=== PATIENT | male | born 1965 | race Caucasian/White ===

== ENCOUNTER 2016-12-24 22:24 | Inpatient (IN) | payer OTHER ==
[~2016-12-24] VITALS: Ht 167.6 cm; Wt 76.7 kg
[~2016-12-24 22:24] MED LIST: AMI200 PO; ASPI81TA2 PO; CARV3.1246 PO; CLOP75TA2 PO; GABA-529 PO; METF1000 PO; RAMI10CA42 PO; WARF2TAB2 PO; WARF5TAB2 PO
--- NOTE | 2016-12-24 22:24 | NUR ---
Patient to ER bed 2 to gown for evaluation. Side rails up. Report given to MARELY Borjas.
[2016-12-24 22:43] VITALS: BP 157/105; PULSE 88; RESP 14; TEMP 97.9; O2SAT 100
--- NOTE | 2016-12-24 22:45 | NUR ---
Pt brought to the ER by in stable condition. Pt c/o right knee pain 8/10 s/p fall 2 wks ago. Pt stated that he was getting out a [place] 2 [place] while traveling. Pt present w/ swelling and tightness to knee and calf. Posterior right knee is tender to touch. -sob -chest pain. No acute distress noted at this time, will continue to monitor
--- NOTE | 2016-12-24 22:52 | NUR ---
ER at bedside examining patient.
[2016-12-24] MEDS ORDERED: HYDROcodone/ACETAMIN 5-325 MG TAB (NORCO/ VICODIN) PO ONE (23:00)
[2016-12-24] MEDS ORDERED: KETOROLAC TROMETHAMINE 30 MG VIAL IVP ONE (23:00)
[2016-12-24 23:19] LABS: BASOPHILS # (AUTO) 0.1 K/uL (0.0-0.2); BASOPHILS % (AUTO) 0.5 % (0.0-2.0); EOSINOPHILS # (AUTO) 0.3 K/uL (0.0-0.4); EOSINOPHILS % (AUTO) 2.2 % (0.0-4.0); HEMATOCRIT 41.6 % (36-54); HEMOGLOBIN 13.7 g/dL (14.0-18.0); LYMPHOCYTES # (AUTO) 1.9 K/uL (1.0-5.5); LYMPHOCYTES % (AUTO) 12.3 % (20.5-51.5); MEAN CORPUSCULAR HEMOGLOBIN 28 pg (27-31); MEAN CORPUSCULAR HGB CONC 33 % (32-36); MEAN CORPUSCULAR VOLUME 86 fL (79.0-98.0); MONOCYTES # (AUTO) 1.2 K/uL (0.0-1.0); MONOCYTES % (AUTO) 7.5 % (1.7-9.3); NEUTROPHILS # (AUTO) 11.9 K/uL (1.8-7.7); NEUTROPHILS % (AUTO) 77.5 % (40.0-70.0); PLATELET COUNT (AUTO) 149 K/uL (130-430); RED BLOOD CELL COUNT(AUTO) 4.84 MIL/uL (4.2-6.2); RED CELL DISTRIBUTION WIDTH 14.3 % (9.0-15.0); WHITE BLOOD COUNT (AUTO) 15.4 K/uL (4.8-10.8)
[2016-12-24 23:23] LABS: CREATININE 1.73 mg/dL (0.55-1.30); POTASSIUM 4.8 mmol/L (3.5-5.1)
[2016-12-24 23:24] LABS: INR 1.2 (0.80-1.20); PROTHROMBIN TIME 12.7 SECS (9.5-12.5)
[2016-12-24 23:29] LABS: ALBUMIN 3.3 g/dL (3.4-4.8); TOTAL BILIRUBIN 0.3 mg/dL (0.0-1.0); TOTAL PROTEIN, SERUM 8.2 g/dL (6.4-8.3)
[2016-12-25] VITALS (7 sets, daily range): BP systolic 122–159; BP diastolic 69–103; PULSE 64–85; RESP 16–20; TEMP 96.7–98; O2SAT 96–99
[2016-12-25] MEDS ORDERED: ENOXAPARIN SODIUM 80 MG/0.8 ML SYRINGE ONE (00:29)
[2016-12-25] MEDS ORDERED: ENOXAPARIN SODIUM 80 MG/0.8 ML SYRINGE SUBCUT ONE (00:30)
[2016-12-25] MEDS ORDERED: INSULIN REGULAR, HUMAN 100 UNITS/ML, 10 ML VIAL (novoLIN R) SUBCUT PRN (00:30)
[2016-12-25] MEDS ORDERED: CHOL2000 PO (00:31)
[2016-12-25] MEDS ORDERED: PRO40 PO (00:31)
[2016-12-25] MEDS ORDERED: ATOR80TA63 PO (00:31)
[2016-12-25] MEDS ORDERED: CYAN50008 PO (00:31)
[2016-12-25] MEDS ORDERED: LEVO100T PO (00:31)
--- NOTE | 2016-12-25 00:35 | NUR ---
Medication reconciliation completed with information provided by . Any prior medication reconciliation on file was reviewed and corrected.
--- NOTE | 2016-12-25 00:44 | NUR ---
Admission Note Received patient from ER with diagnosis of DVT. Initial Plan of Care discussed-patient verbalized understanding. Family at bedside. Oriented to room, call light, pain management and safety.
--- NOTE | 2016-12-25 00:51 | NUR ---
Patient will be admitted to care of Dr. Vang. Admitted to tele unit. Will go to room 127-a. Belongings list completed. Summary report printed. Report given to MARELY Cooper and MARELY Colmenares.
--- NOTE | 2016-12-25 01:00 | NUR ---
Admission Assessment Received patient from ED, AAO x4, no acute distress noted. Assessment complete, vital signs stable, patient states pain is tolerable at this time. is at the bedside. IV noted to right AC, saline locked at this time, flushes well, no redness or swelling noted to IV site. Plan of care discussed with patient and at the bedside, they verbalized understanding. Patient is verbally able to make needs known and encouraged to do so. Call light is within reach, all fall and safety precautions in place, will continue to monitor for change in patient status.
[2016-12-25] MEDS ORDERED: FLU VACC QS 2016-17(36MOS+)/PF 0.5 ML/SYR SYRINGE I.M. PRN (01:15)
--- NOTE | 2016-12-25 03:32 | NUR ---
RN Rounds Patient is sleeping, respirations are even and unlabored, no acute distress noted, is at the bedside. Call light is within reach, all fall and safety precautions in place, will continue to monitor.
--- NOTE | 2016-12-25 05:29 | NUR ---
RN Rounds Patient is resting quietly in bed, no acute distress noted, is at the beside. Call light is within reach, all fall and safety precautions in place, will continue to monitor.
--- NOTE | 2016-12-25 06:51 | NUR ---
Closing Notes Patient is resting quietly in bed, no acute distress noted or complain of pain at this time. Patient is stable, all needs met throughout shift. Will continue to monitor until endorsed to AM nurse at bedside.
[2016-12-25 08:33] LABS: BASOPHILS # (AUTO) 0.1 K/uL (0.0-0.2); BASOPHILS % (AUTO) 0.6 % (0.0-2.0); EOSINOPHILS # (AUTO) 0.4 K/uL (0.0-0.4); EOSINOPHILS % (AUTO) 2.9 % (0.0-4.0); HEMATOCRIT 36.9 % (36-54); HEMOGLOBIN 12.5 g/dL (14.0-18.0); LYMPHOCYTES # (AUTO) 3.6 K/uL (1.0-5.5); LYMPHOCYTES % (AUTO) 29.2 % (20.5-51.5); MEAN CORPUSCULAR HEMOGLOBIN 29 pg (27-31); MEAN CORPUSCULAR HGB CONC 34 % (32-36); MEAN CORPUSCULAR VOLUME 86 fL (79.0-98.0); MONOCYTES # (AUTO) 1.3 K/uL (0.0-1.0); MONOCYTES % (AUTO) 10.2 % (1.7-9.3); NEUTROPHILS # (AUTO) 6.9 K/uL (1.8-7.7); NEUTROPHILS % (AUTO) 57.1 % (40.0-70.0); PLATELET COUNT (AUTO) 152 K/uL (130-430); RED BLOOD CELL COUNT(AUTO) 4.31 MIL/uL (4.2-6.2); RED CELL DISTRIBUTION WIDTH 13.9 % (9.0-15.0); WHITE BLOOD COUNT (AUTO) 12.3 K/uL (4.8-10.8)
[2016-12-25 08:40] LABS: CALCIUM 8.5 mg/dL (8.4-11.0); CREATININE 1.87 mg/dL (0.55-1.30); POTASSIUM 4.1 mmol/L (3.5-5.1)
--- NOTE | 2016-12-25 09:45 | NUR ---
RN ROUNDS Patient is currently resting in bed; patient states he has a little discomfort in leg but no pain at the current time. No signs of discomfort. Patient instructed to use call pink for assistance. Bed in lowest position, side rails are up, fall precautions in place.
[2016-12-25 10:15] LABS: ALBUMIN 2.9 g/dL (3.4-4.8); TOTAL BILIRUBIN 0.2 mg/dL (0.0-1.0); TOTAL PROTEIN, SERUM 6.6 g/dL (6.4-8.3)
[2016-12-25 10:23] LABS: THYROID STIMULATING HORMONE 53.39 uIu/mL (0.34-4.82)
--- NOTE | 2016-12-25 10:30 | NUR ---
AM ROUNDS Patient is awake and alert and oriented x 4. Patient denies pain at this time, no signs of distress. Educated patient deckhand sponge boat pink system, patient verbalized understanding. Addendum: 12/25/16 at 1033 by Hali Verduzco RN Incorrect time; 0730. Educated patient on fall precaution
--- NOTE | 2016-12-25 10:34 | NUR ---
Dr. MCKENZIE Here to see patient; discussed plan of care; patient to be discharged after dinner today. Will follow up
[2016-12-25] MEDS ORDERED: CYANOCOBALAMIN 5000 MCG PO SCH (11:00)
[2016-12-25] MEDS ORDERED: RAMIPRIL 5 MG CAPSULE PO SCH (11:00)
[2016-12-25] MEDS ORDERED: ACETAMINOPHEN 325 MG TABLET PO PRN (11:00)
[2016-12-25] MEDS ORDERED: CARVEDILOL 3.125 MG TABLET (COREG) PO SCH (11:00)
[2016-12-25] MEDS ORDERED: HYDROcodone/ACETAMIN 5-325 MG TAB (NORCO/ VICODIN) PO PRN (11:15)
[2016-12-25] MEDS ORDERED: ONDANSETRON HCL 4 MG/2 ML VIAL IVP PRN (11:15)
[2016-12-25] MEDS ORDERED: AMIODARONE HCL 200 MG TABLET PO ONE (11:45)
[2016-12-25] MEDS ORDERED: PANTOPRAZOLE SODIUM 40 MG TAB PO ONE (11:45)
--- NOTE | 2016-12-25 12:00 | NUR ---
Medication Medication given to patient; educated patient on potential side effects; verbalized understanding of medication. Patient is in lowest position, side rails up, fall precautions in place. Instructed patient to use call pink if assistance is needed.
[2016-12-25] MEDS ORDERED: BENAZEPRIL HCL 20 MG TABLET (LOTENSIN) PO ONE (12:15)
[2016-12-25] MEDS ORDERED: CARVEDILOL 25 MG TABLET (COREG) PO ONE (12:15)
[2016-12-25] MEDS ORDERED: APIXABAN 2.5 MG TABLET PO ONE (12:30)
--- NOTE | 2016-12-25 13:20 | NUR ---
RN ROUNDS PATIENT RESTING IN BED, EYES CLOSED, BREATHING IS EVEN AND UNLABORED, NO SIGNS OF DISTRESS, AT THE BEDSIDE AT THIS TIME, INFORMED THAT DISCHARGE WILL BE ABOUT 1600 TODAY, VERBALIZED UNDERSTANDING AT THIS TIME, BED IN LOWEST POSITION, TWO SIDE RAILS UP, FALL PRECAUTIONS IN PLACE, CALL LIGHT WITHIN REACH.
--- NOTE | 2016-12-25 15:30 | NUR ---
RN ROUNDS Patient resting in bed; family members at bedside. Patient states he is not in any pain. Bed in lowest position, two side rails up, fall precautions initiated. Will continue to monitor patient.
--- NOTE | 2016-12-25 16:20 | NUR ---
D/C Patient Patient given medication reconciliation form and D/C instructions. Exit Care provided. Patient verbalized understanding. MD discussed with patient the results and treatment provided. Ambulatory with steady gait for discharge to home. Patient in stable condition, ID band removed. IV catheter removed, intact and dressing applied, no active bleeding. Rx of ELIQUIS given. Patient educated on pain management. All belongings sent with patient.
[2016-12-25] MEDS ORDERED: metFORMIN HCL 500 MG TABLET PO SCH (21:00)
[2016-12-25] MEDS ORDERED: APIXABAN 2.5 MG TABLET PO SCH ×2 (21:00)
[2016-12-25] MEDS ORDERED: CHOLECALCIFEROL (VITAMIN D3) 2,000 UNIT TABLET PO SCH (21:00)
[2016-12-25] MEDS ORDERED: CARVEDILOL 25 MG TABLET (COREG) PO SCH (21:00)
[2016-12-25] MEDS ORDERED: ATORVASTATIN 20 MG TABLET PO SCH (21:00)
[2016-12-26] MEDS ORDERED: LEVOTHYROXINE SODIUM 0.1 MG TABLET PO SCH (07:00)
[2016-12-26] MEDS ORDERED: PANTOPRAZOLE SODIUM 40 MG TAB PO SCH (09:00)
[2016-12-26] MEDS ORDERED: GABAPENTIN 100 MG CAPSULE PO SCH (09:00)
[2016-12-26] MEDS ORDERED: BENAZEPRIL HCL 20 MG TABLET (LOTENSIN) PO SCH (09:00)
[2016-12-26] MEDS ORDERED: AMIODARONE HCL 200 MG TABLET PO SCH (09:00)
== END 2016-12-25 16:20 | disposition home or self-care (01) | DRG 300 ==
LOC: SED 22:24 → STU 12-25 00:22
PROVIDERS: ADMIT Internal Medicine; ATTEND Internal Medicine
DX: I82.401 Acute embolism and thrombosis of unspecified deep veins of right lower extremity (principal); D68.62 Lupus anticoagulant syndrome; B96.81 Helicobacter pylori [H. pylori] as the cause of diseases classified elsewhere; E03.9 Hypothyroidism, unspecified; E11.21 Type 2 diabetes mellitus with diabetic nephropathy; E11.22 Type 2 diabetes mellitus with diabetic chronic kidney disease; E78.5 Hyperlipidemia, unspecified; F17.200 Nicotine dependence, unspecified, uncomplicated; K29.70 Gastritis, unspecified, without bleeding; N18.9 Chronic kidney disease, unspecified; I25.10 Atherosclerotic heart disease of native coronary artery without angina pectoris; I12.9 Hypertensive chronic kidney disease with stage 1 through stage 4 chronic kidney disease, or unspecified chronic kidney disease; I25.5 Ischemic cardiomyopathy; K57.90 Diverticulosis of intestine, part unspecified, without perforation or abscess without bleeding; I48.91 Unspecified atrial fibrillation; Z79.01 Long term (current) use of anticoagulants; Z88.0 Allergy status to penicillin; Z95.0 Presence of cardiac pacemaker; E05.90 Thyrotoxicosis, unspecified without thyrotoxic crisis or storm
CPT/HCPCS: 36415; 73564; 80053; 80061; 82962; 83036; 84443-TC; 85025; 85610-TC; 93005; 93971; 96374; 99285; J1650; J1815; J1885

== ENCOUNTER 2017-01-13 17:24 | Outpatient (CLI) | payer OTHER ==
[~2017-01-13 17:24] MED LIST changes: +ATOR80TA63 PO; +CHOL2000 PO; +CYAN50008 PO; +LEVO100T PO; +PRO40 PO
[2017-01-13 17:47] LABS: BASOPHILS # (AUTO) 0.1 K/uL (0.0-0.2); BASOPHILS % (AUTO) 0.4 % (0.0-2.0); EOSINOPHILS # (AUTO) 0.3 K/uL (0.0-0.4); EOSINOPHILS % (AUTO) 2.7 % (0.0-4.0); HEMATOCRIT 36.5 % (36-54); HEMOGLOBIN 12.4 g/dL (14.0-18.0); LYMPHOCYTES # (AUTO) 2.9 K/uL (1.0-5.5); LYMPHOCYTES % (AUTO) 22.6 % (20.5-51.5); MEAN CORPUSCULAR HEMOGLOBIN 30 pg (27-31); MEAN CORPUSCULAR HGB CONC 34 % (32-36); MEAN CORPUSCULAR VOLUME 87 fL (79.0-98.0); MONOCYTES # (AUTO) 1.6 K/uL (0.0-1.0); MONOCYTES % (AUTO) 12.1 % (1.7-9.3); NEUTROPHILS # (AUTO) 8.1 K/uL (1.8-7.7); NEUTROPHILS % (AUTO) 62.2 % (40.0-70.0); PLATELET COUNT (AUTO) 106 K/uL (130-430); RED BLOOD CELL COUNT(AUTO) 4.21 MIL/uL (4.2-6.2); RED CELL DISTRIBUTION WIDTH 15.1 % (9.0-15.0)
[2017-01-13 18:11] LABS: ALBUMIN 3.5 g/dL (3.4-4.8); CALCIUM 8.6 mg/dL (8.4-11.0); CREATININE 1.92 mg/dL (0.55-1.30); FREE T4 (FREE THYROXINE) 0.8 ng/dL (0.6-1.6); POTASSIUM 4.1 mmol/L (3.5-5.1); THYROID STIMULATING HORMONE 20.02 uIu/mL (0.34-4.82); TOTAL BILIRUBIN 0.4 mg/dL (0.0-1.0); TOTAL PROTEIN, SERUM 8.2 g/dL (6.4-8.3)
[2017-01-15 11:39] LABS: HEMOGLOBIN A1C 9.6 % (4.8-5.6)
== END 2017-01-13 21:09 | disposition home or self-care (01) ==
LOC: SUS 17:24
PROVIDERS: ATTEND Internal Medicine
DX: I80.299 Phlebitis and thrombophlebitis of other deep vessels of unspecified lower extremity (principal)
CPT/HCPCS: 36415; 80053; 82306; 82607; 83036; 84439; 84443-TC; 85025; 93971

== ENCOUNTER 2017-01-21 11:21 | Inpatient (IN) | payer OTHER ==
[~2017-01-21] VITALS: Ht 167.6 cm; Wt 84.8 kg
[~2017-01-21 11:21] MED LIST changes: -ASPI81TA2 PO; -CLOP75TA2 PO; -METF1000 PO; -WARF2TAB2 PO; -WARF5TAB2 PO
--- NOTE | 2017-01-21 14:15 | NUR ---
ADMIT NOTE Received pt from admitting to the floor with a diagnosis of intracardiac thrombus. Admission process initiated. Patient oriented to pain management, safety and call light-teach back done.
[2017-01-21] MEDS ORDERED: APIX5TAB PO (14:28)
[2017-01-21] MEDS ORDERED: ASA81 PO (14:30)
[2017-01-21 14:53] VITALS: BP_SYST 160
--- NOTE | 2017-01-21 15:04 | NUR ---
CONSULT CARDIO IC THROMBUS DR NEGRETE [phone] DR BANSAL RENTAL CAR FERRY DRIVER S/W DARRYL OFFICE @ [phone]
[2017-01-21 15:11] LABS: BASOPHILS # (AUTO) 0.1 K/uL (0.0-0.2); BASOPHILS % (AUTO) 0.6 % (0.0-2.0); EOSINOPHILS # (AUTO) 0.4 K/uL (0.0-0.4); EOSINOPHILS % (AUTO) 2.9 % (0.0-4.0); HEMATOCRIT 34.8 % (36-54); HEMOGLOBIN 11.9 g/dL (14.0-18.0); LYMPHOCYTES # (AUTO) 2.3 K/uL (1.0-5.5); LYMPHOCYTES % (AUTO) 16.5 % (20.5-51.5); MEAN CORPUSCULAR HEMOGLOBIN 30 pg (27-31); MEAN CORPUSCULAR HGB CONC 34 % (32-36); MEAN CORPUSCULAR VOLUME 87 fL (79.0-98.0); MONOCYTES # (AUTO) 0.9 K/uL (0.0-1.0); MONOCYTES % (AUTO) 6.2 % (1.7-9.3); NEUTROPHILS % (AUTO) 73.8 % (40.0-70.0); PLATELET COUNT (AUTO) 239 K/uL (130-430); RED BLOOD CELL COUNT(AUTO) 3.99 MIL/uL (4.2-6.2); RED CELL DISTRIBUTION WIDTH 14.6 % (9.0-15.0); WHITE BLOOD COUNT (AUTO) 13.7 K/uL (4.8-10.8)
[2017-01-21] MEDS ORDERED: FLU VACC QS 2016-17(36MOS+)/PF 0.5 ML/SYR SYRINGE I.M. PRN (15:15)
[2017-01-21 15:18] LABS: CALCIUM 8.4 mg/dL (8.4-11.0); CREATININE 1.85 mg/dL (0.55-1.30); POTASSIUM 4.5 mmol/L (3.5-5.1)
[2017-01-21 15:21] LABS: INR 1.4 (0.80-1.20); PROTHROMBIN TIME 15.5 SECS (9.5-12.5)
[2017-01-21 15:23] LABS: ALBUMIN 3.4 g/dL (3.4-4.8); PHOSPHORUS 2.9 mg/dL (2.7-4.5); TOTAL BILIRUBIN 0.4 mg/dL (0.0-1.0); TOTAL PROTEIN, SERUM 7.9 g/dL (6.4-8.3)
--- NOTE | 2017-01-21 15:45 | NUR ---
CONSULT HEMATOLOGY IC THROMBUS, DVT DR THOMAS [phone] S/W MICHAEL OFFICE @ [phone]
--- NOTE | 2017-01-21 15:47 | NUR ---
CONSULT ENDOCRINOLOGY DM-II DR ORTIZ [phone] S/W JOSEPH OFFICE @ 1324
[2017-01-21 16:06] VITALS: BP_SYST 160
--- NOTE | 2017-01-21 16:08 | NUR ---
RN ROUNDS PATIENT OUT OF BED TO RESTROOM AT THIS TIME, STEADY GAIT, BED IN LOWEST POSITION FOR PATIENT RETURN TO BED, WILL CONTINUE TO MONITOR.
[2017-01-21 16:32] LABS: BILIRUBIN,URINE NEGATIVE (NEGATIVE); CLARITY/URINE CLEAR (CLEAR); COLOR,URINE YELLOW (YELLOW); GLUCOSE,URINE NEGATIVE (NEGATIVE); KETONES,URINE NEGATIVE (NEGATIVE); LEUKOCYTE ESTERASE ,URINE NEGATIVE (NEGATIVE); NITRITE, URINE NEGATIVE (NEGATIVE); PROTEIN URINE 1+ (NEGATIVE); UROBILINOGEN,URINE 0.2 (0.2-1.0)
[2017-01-21] MEDS ORDERED: DEXTROSE 50% JECT 50 ML DISP.SYRIN IVP PRN (16:45)
[2017-01-21] MEDS ORDERED: ASPIRIN 81 MG TAB.CHEW PO PRN (16:45)
--- NOTE | 2017-01-21 17:01 | NUR ---
DR BANSAL HERE TO SEE THE PATIENT, WILL FOLLOW UP WITH ANY NEW ORDERS.
--- NOTE | 2017-01-21 17:15 | NUR ---
DR MCKENZIE HERE TO SEE THE PATIENT, WILL FOLLOW UP WITH ANY NEW ORDERS.
[2017-01-21 17:19] LABS: BLOOD, URINE TRACE (NEGATIVE)
[2017-01-21] MEDS: INSULIN REGULAR, HUMAN 100 UNITS/ML, 10 ML VIAL (novoLIN R) SUBCUT PRN ×2 (17:20→20:25)
[2017-01-21 17:24] LABS: BACTERIA,URINE FEW /HPF (None Seen); MUCUS,URINE None Seen /LPF (None Seen); RBC,URINE 0-3 /HPF (0-3); WBC,URINE 0-3 /HPF (0-3)
[2017-01-21] MEDS ORDERED: APIXABAN 2.5 MG TABLET PO ONE (18:00)
--- NOTE | 2017-01-21 18:45 | NUR ---
CLOSING NOTES PATIENT RESTING IN BED, AWAKE, FINISHING DINNER, ASPIRATION PRECAUTIONS IN PLACE, ALL NEEDS MET, WILL ENDORSE REPORT TO NOC SHIFT NURSE, BED IN LOWEST POSITION, TWO SIDE RAILS UP, CALL LIGHT NEXT TO THE PATIENT'S HAND.
[2017-01-21 20:00] VITALS: BP_SYST 130
--- NOTE | 2017-01-21 20:00 | NUR ---
Initial PM Note Pt was received lying in bed fully AAO x4. No acute distress noted and no c/o pain or discomfort. Rt leg noted with redness and swelling. Pedal pulses on BLE palpable. learning and development manager verified to be correct box for pt and it is showing sinus rhythm with HR in the 60's. Skin is warm and dry to touch. No signs or symptoms of hypoglycemia or hyperglycemia noted. Plan of care was discussed with pt. Saline lock is intact in LAC and no signs of infiltration noted at the IV site. Fall and safety precautions are in place. Pt was instructed to call for assistance as needed and pt verbalized understanding. Call light is with pt. Bed is in locked and lowest positions. Will continue to monitor pt.
--- NOTE | 2017-01-21 20:25 | NUR ---
Blood Sugar Accucheck 173 and 2 units Regular Insulin given SQ. Skin remains warm and dry to touch. Pt already has HS snacks. Will continue to monitor pt.
[2017-01-21] MEDS ORDERED: ATORVASTATIN 20 MG TABLET PO SCH (21:00)
[2017-01-21] MEDS ORDERED: CARVEDILOL 12.5 MG TABLET (COREG) PO SCH (21:00)
[2017-01-21] MEDS ORDERED: NON-FORMULARY MEDICATION (Apixaban (Eliquis) 5 MG) PO SCH (21:00)
--- NOTE | 2017-01-21 22:00 | NUR ---
Rounds Pt is resting comfortably in bed and watching TV. Call light is with pt.
--- NOTE | 2017-01-21 23:12 | NUR ---
After Hours Pharmacy Call received from [facility] After Hours Pharmacist requesting clarifications for the followin. Aspirin 81mg po daily PRN. Per pharmacist, it should be daily. 2. Coreg 37.25mg po BID. Per Pharmacist, the dosage is too high. Informed pharmacist MD would be contacted for clarifications.
--- NOTE | 2017-01-21 23:15 | NUR ---
PAGED: I PAGED DR. MCKENZIE @ [phone] I SPOKE WITH TU MAYES
--- NOTE | 2017-01-21 23:18 | NUR ---
DR. MCKENZIE CALLED BACK @ [phone]
--- NOTE | 2017-01-21 23:30 | NUR ---
Order Clarification New orders received from Dr. Vang Re: Aspirin and Coreg. Dr. Vang changed Aspirin from daily PRN to daily. He then ordered Coreg's clarification held tonight until the actual dosage is confirmed with pt's spouse. Actual call back from Dr. Vang was [phone], but RN was attending to another pt when Dr. Vang called back. RN unable to enter new orders at 2318 since RN was busy in another pt's room at that time.
[2017-01-21] MEDS: CHOLECALCIFEROL (VITAMIN D3) 2,000 UNIT TABLET PO SCH (23:39)
--- NOTE | 2017-01-21 23:55 | NUR ---
Pain Pt c/o 9/10 burning pain in his Rt leg and requested pain medication. No pain medication was ordered by MD. Pt was informed Dr. Vang would be paged.
--- NOTE | 2017-01-21 23:56 | NUR ---
PAGED: I PAGED , MAGALY @ [phone] I SPOKE WITH TU MAYES
[2017-01-22] VITALS (7 sets, daily range): BP systolic 125–165
--- NOTE | 2017-01-22 00:25 | NUR ---
Critical Lab Result Per Stefanie from the Lab, Troponin level is 0.119. Previous level was 0.112. Pt is denies chest pain at this time. lawnmower repair mechanic is showing SR. Will notify
[2017-01-22] MEDS ORDERED: COMMUNICATION ORDER XX ONE (00:30)
[2017-01-22] MEDS ORDERED: HYDROcodone/ACETAMIN 5-325 MG TAB (NORCO/ VICODIN) PO PRN ×2 (00:30)
--- NOTE | 2017-01-22 00:30 | NUR ---
Dr. Vang New orders received from Dr. Vang for pain medication and also for Coreg. Addendum: 01/22/17 at 0253 by Vernell Banda RN Actual call back from Dr. Vang was 0010, but RN was attending to another pt when Dr. Vang called back. RN unable to enter new orders at 0010 since RN was busy in another pt's room at that time.
--- NOTE | 2017-01-22 01:02 | NUR ---
PAGED: I PAGED DR. NEGRETE @ [phone] I SPOKE WITH INGE ORELLANA #22
--- NOTE | 2017-01-22 01:03 | NUR ---
Pain Medication [place] 5/325mg 1 tablet was given po for c/o Rt leg pain with relief.
--- NOTE | 2017-01-22 01:28 | NUR ---
PAGED: I PAGED DR. NEGRETE @ [phone] I SPOKE WITH INGE HAWTHORNE SENIOR ENGINEERING TECHNICIAN THIS IS THE SECOND TIME PAGED
--- NOTE | 2017-01-22 01:30 | NUR ---
Dr. Taj Vang called back to speak with Charge Nurse regarding clarification of Coreg. Dr. Vang inquired about current Troponin level and Charge Nurse informed him it is 0.119. Charge Nurse also informed him Dr. Hodges, who is covering for Dr. Marks had been paged Re: Troponin level, but he is yet to call back.
--- NOTE | 2017-01-22 02:00 | NUR ---
Report Report was given to Nurse Rain for continuity of pt's nursing care.
--- NOTE | 2017-01-22 02:09 | NUR ---
Received report from Vernell YAP. Patient sleeping at this time. No s/s of pain noted. No SOB noted. Call light within reach. Will continue to monitor.
--- NOTE | 2017-01-22 04:25 | NUR ---
Notes Patient sleeping at this time. No s/s of pain or discomfort noted. No SOB noted. Afebrile. IV site patent, flushes well. Call light within reach. Will continue to monitor.
--- NOTE | 2017-01-22 06:22 | NUR ---
Closing Notes Flu shot given, pt tolerated well. Blood sugar checked, no insulin coverage needed. No s/s of hypo/hyperglycemia. No SOB noted. Patient denies pain at this time. Repositioned self in bed. IV site patent, flushes well. Goals met. Call light within reach. Will continue to monitor.
[2017-01-22] MEDS ORDERED: LEVOTHYROXINE SODIUM 0.1 MG TABLET PO SCH (07:00)
--- NOTE | 2017-01-22 07:20 | NUR ---
AM ROUNDS PATIENT RESTING IN BED, AWAKE, ALERT AND ORIENTED X4, DENIES PAIN, ASSESSMENT COMPLETE, EDUCATED THE PATIENT RECOVERY AUDITOR LIGHT SYSTEM AND TO CALL FOR ANY ASSISTANCE, PATIENT VERBALIZED UNDERSTANDING AT THIS TIME, CALL LIGHT PLACED IN THE PATIENT'S HAND, MILD REDNESS AND EDEMA NOTED ON THE RIGHT LEG, NEUROVASCULAR STATUS INTACT, BED IN LOWEST POSITION, TWO SIDE RAILS UP, FALL AND ASPIRATION PRECAUTIONS IN PLACE.
[2017-01-22 07:30] LABS: THYROID STIMULATING HORMONE 17.94 uIu/mL (0.34-4.82)
[2017-01-22] MEDS: CHOLECALCIFEROL (VITAMIN D3) 2,000 UNIT TABLET PO SCH (08:29)
--- NOTE | 2017-01-22 08:30 | NUR ---
RN ROUNDS PATIENT RESTING IN BED, AWAKE, EDUCATED ON MEDICATIONS AND POTENTIAL SIDE EFFECTS, PATIENT VERBALIZED UNDERSTANDING AND TOLERATED WELL, PATIENT WILL BE GOING FOR VQ SCAN THIS MORNING, NO OTHER NEEDS AT THIS TIME, BED IN LOWEST POSITION, TWO SIDE RAILS UP, CALL LIGHT NEXT TO THE PATIENT'S HAND, FALL AND ASPIRATION PRECAUTIONS IN PLACE.
--- NOTE | 2017-01-22 08:45 | NUR ---
PATIENT OFF THE UNIT VIA WHEELCHAIR, IN STABLE CONDITION.
[2017-01-22] MEDS ORDERED: LISINOPRIL 20 MG TABLET PO SCH (09:00)
[2017-01-22] MEDS ORDERED: AMIODARONE HCL 200 MG TABLET PO SCH (09:00)
[2017-01-22] MEDS ORDERED: APIXABAN 2.5 MG TABLET PO SCH (09:00)
[2017-01-22] MEDS ORDERED: RAMIPRIL 5 MG CAPSULE PO SCH (09:00)
[2017-01-22] MEDS ORDERED: PANTOPRAZOLE SODIUM 40 MG TAB PO SCH (09:00)
[2017-01-22] MEDS ORDERED: GABAPENTIN 100 MG CAPSULE PO SCH (09:00)
[2017-01-22] MEDS ORDERED: ASPIRIN 81 MG TAB.CHEW PO SCH (09:00)
--- NOTE | 2017-01-22 09:30 | NUR ---
PATIENT BACK ON THE UNIT STABLE CONDITION.
--- NOTE | 2017-01-22 10:50 | NUR ---
RN ROUNDS PATIENT RESTING IN BED, VISITOR AT THE BEDSIDE, NO OTHER NEEDS AT THIS TIME, BED IN LOWEST POSITION, TWO SIDE RAILS UP, FALL PRECAUTIONS IN PLACE, CALL LIGHT NEXT TO THE PATIENT'S HAND.
--- NOTE | 2017-01-22 11:28 | NUR ---
RN ROUNDS PATIENT RESTING IN BED, AWAKE, DENIES PAIN, BLOOD GLUCOSE CHECK AND INSULIN ADMINISTRATION COMPLETE PER MD ORDERS, NO OTHER NEEDS AT THIS TIME, BED IN LOWEST POSITION, TWO SIDE RAILS UP, FALL AND ASPIRATION PRECAUTIONS IN PLACE, CALL LIGHT NEXT TO THE PATIENT'S HAND.
[2017-01-22] MEDS: INSULIN REGULAR, HUMAN 100 UNITS/ML, 10 ML VIAL (novoLIN R) SUBCUT PRN (11:32)
[2017-01-22] MEDS ORDERED: amLODIPine BESYLATE 5 MG TABLET PO ONE (11:45)
[2017-01-22 13:35] LABS: BASOPHILS # (AUTO) 0.1 K/uL (0.0-0.2); BASOPHILS % (AUTO) 0.5 % (0.0-2.0); EOSINOPHILS # (AUTO) 0.4 K/uL (0.0-0.4); EOSINOPHILS % (AUTO) 3.3 % (0.0-4.0); HEMATOCRIT 35.5 % (36-54); HEMOGLOBIN 11.9 g/dL (14.0-18.0); LYMPHOCYTES # (AUTO) 2.5 K/uL (1.0-5.5); LYMPHOCYTES % (AUTO) 20.7 % (20.5-51.5); MEAN CORPUSCULAR HEMOGLOBIN 29 pg (27-31); MEAN CORPUSCULAR HGB CONC 34 % (32-36); MEAN CORPUSCULAR VOLUME 87 fL (79.0-98.0); MONOCYTES # (AUTO) 1.1 K/uL (0.0-1.0); MONOCYTES % (AUTO) 9.5 % (1.7-9.3); NEUTROPHILS # (AUTO) 7.9 K/uL (1.8-7.7); PLATELET COUNT (AUTO) 316 K/uL (130-430); RED BLOOD CELL COUNT(AUTO) 4.11 MIL/uL (4.2-6.2); RED CELL DISTRIBUTION WIDTH 14.8 % (9.0-15.0)
--- NOTE | 2017-01-22 13:36 | NUR ---
Discharge Planning Received order to transfer to [facility] for Cardiac Catheterization. Met with patient at bedside and he is agreeable to transfer. Called and left message for Carol Cordova [phone], asking her to return my call. Called and spoke with JOYCE Infante @ [facility], [phone] requesting transfer. Arelis took Dr Vang's contact number and will discuss with her Garnett Machine Operator who will reach out to Dr Vang to let him know if patient will be accepted. I let Dr Vang know that he will be receiving call from Med Director @ [facility]. He will wait for call. Packet made for transfer. Addendum: 01/22/17 at 1421 by Ivy Yaadv RN Received call back from JOYCE Infante @ [facility] stating that she had an accepting physician and available bed. Accepting MD: Dr Regan Room # 209. Nurse to Nurse report # [phone] Nurse is Reached out to Carol Cordova requesting contracted ambulance for transportation. Addendum: 01/22/17 at 1440 by Jazmin GORDON Ordered Radiology CD. Placed transportation packet in nurses station. Faxed requested EMR to [facility] [phone] requested to review and return call with contracted ambulance and insurance auth. DCP will continue to follow up. Addendum: 01/22/17 at 1514 by Jazmin Chanel DP Called Art spoke with Elvia who confirmed faxed EMR received and placed ontop of stack for UR to review. DCP will continue to follow up. Addendum: 01/22/17 at 1622 by Jazmin Chanel DP Received transport auth. Called [facility] spoke with Alonzo who is unable to arrange due to facility outside of service area. Called [facility] ambulance [phone] spoke with Millie okeefe ACLS ([employer]) transport machine pecan picker soonest available 8pm Auth#[id number]. MARELY Mckoy made aware. Addendum: 01/22/17 at 1622 by Jazmin Chanel DP [facility] [address] [address], [place] [address]
[2017-01-22 14:05] LABS: CREATININE 1.75 mg/dL (0.55-1.30); POTASSIUM 5.2 mmol/L (3.5-5.1)
--- NOTE | 2017-01-22 14:17 | NUR ---
RN ROUNDS PATIENT RESTING IN BED, AWAKE, DENIES PAIN, EDUCATED ON MEDICATION AND POTENTIAL SIDE EFFECTS, PATIENT VERBALIZED UNDERSTANDING AND TOLERATED WELL, PATIENT REQUESTING A TURKEY SANDWICH, SECOND VOICEMAIL LEFT FOR DIETARY/KITCHEN, WILL FOLLOW UP, PATIENT HAS NO OTHER NEEDS AT THIS TIME, BED IN LOWEST POSITION, TWO SIDE RAILS UP, FALL AND ASPIRATION PRECAUTIONS IN PLACE, CALL LIGHT NEXT TO THE PATIENT'S HAND.
--- NOTE | 2017-01-22 16:02 | NUR ---
DC planning: JOYCE Holly and DCP Jazmin have left messages with customer service at [facility] to get ambulance authorization-they s/w Elvia and Jorge and told auth is in UR review. I called and LM with Carol Edwards at [facility] also, then called back customer service at [phone]--s/w Vandana and explained we really need the auth to get pt up to [facility] for cardiac cath--Vandana gave auth#[id number] to use for [facility]S [employer] contracted ambulance. Vandana will fax us hard-copy auth--SAMEERA YAP
--- NOTE | 2017-01-22 16:47 | NUR ---
RN ROUNDS PATIENT RESTING IN BED, EYES CLOSED, BREATHING IS EVEN AND UNLABORED, NO SIGNS OF DISTRESS, BED IN LOWEST POSITION, TWO SIDE RAILS UP, FALL PRECAUTIONS IN PLACE, CALL LIGHT NEXT TO THE PATIENT'S HAND.
--- NOTE | 2017-01-22 18:41 | NUR ---
CLOSING NOTES PATIENT RESTING IN BED, EATING DINNER, ASPIRATION PRECAUTIONS IN PLACE, ALL NEEDS MET, PATIENT AWARE OF TRANSFER AT 8PM TO [facility], BED IN LOWEST POSITION, TWO SIDE RAILS UP, FALL PRECAUTIONS ALSO IN PLACE, CALL LIGHT NEXT TO THE PATIENT'S HAND, WILL ENDORSE REPORT TO NOC SHIFT NURSE.
--- NOTE | 2017-01-22 18:41 | NUR ---
CALLED REPORT TO [facility], SPOKE WITH FRANCOIS YAP.
--- NOTE | 2017-01-22 20:00 | NUR ---
PM Shift Assessment Received patient sitting up in bed, AAO x4, no acute distress noted. Assessment complete, vital signs stable. IV noted to right forearm. saline locked at this time, flushes well, no redness or swelling noted to IV site. Plan for transfer to [facility] discussed with patient, he verbalized understanding. Patient is verbally able to make needs known and encouraged to do so. Call light is within reach, all fall and safety precautions in place, will continue to monitor for change in patient status.
--- NOTE | 2017-01-22 20:15 | NUR ---
D/C Patient Patient given medication reconciliation form and D/C instructions. Exit Care provided. Patient verbalized understanding. Ambulatory with steady gait for transfer to [facility]. Patient in stable condition, ID band removed. IV catheter left intact. Patient educated on pain management. All belongings sent with patient.
== END 2017-01-22 20:14 | disposition short-term general hospital (02) | DRG 281 ==
LOC: SMI 11:21 → SMU 14:13 → STU 14:48
PROVIDERS: ADMIT Internal Medicine; ATTEND Internal Medicine
DX: I21.4 Non-ST elevation (NSTEMI) myocardial infarction (principal); D68.62 Lupus anticoagulant syndrome; I82.401 Acute embolism and thrombosis of unspecified deep veins of right lower extremity; I13.0 Hypertensive heart and chronic kidney disease with heart failure and stage 1 through stage 4 chronic kidney disease, or unspecified chronic kidney disease; I50.20 Unspecified systolic (congestive) heart failure; E11.65 Type 2 diabetes mellitus with hyperglycemia; N18.3 Chronic kidney disease, stage 3 (moderate); F17.210 Nicotine dependence, cigarettes, uncomplicated; I25.5 Ischemic cardiomyopathy; I70.209 Unspecified atherosclerosis of native arteries of extremities, unspecified extremity; E11.21 Type 2 diabetes mellitus with diabetic nephropathy; E11.22 Type 2 diabetes mellitus with diabetic chronic kidney disease; E11.51 Type 2 diabetes mellitus with diabetic peripheral angiopathy without gangrene; E78.5 Hyperlipidemia, unspecified; I25.10 Atherosclerotic heart disease of native coronary artery without angina pectoris; Z88.0 Allergy status to penicillin; Z98.890 Other specified postprocedural states; Z95.810 Presence of automatic (implantable) cardiac defibrillator; Z79.899 Other long term (current) drug therapy; Z79.01 Long term (current) use of anticoagulants
CPT/HCPCS: 36415; 71020-TC; 78579; 78580-TC; 80048; 80053; 80061; 81000-TC; 82550-TC; 82962; 83036; 83735-TC; 83880; 84100-TC; 84439; 84443-TC; 84484; 85025; 85379; 85610-TC; 85730-TC; 87081; 93005; 93306; 93923; A9539; A9540; J1815; Q2037

== ENCOUNTER 2017-01-26 09:09 | Emergency (ER) | payer OTHER ==
[~2017-01-26 09:09] MED LIST changes: +APIX5TAB PO; +ASA81 PO; +ASPI81TA2 PO; +CLOP75TA2 PO; +METF1000 PO; +WARF2TAB2 PO; +WARF5TAB2 PO
--- NOTE | 2017-01-26 09:09 | NUR ---
ER at bedside examining patient.
--- NOTE | 2017-01-26 09:09 | NUR ---
c/o severe chest pain since this morning, took NTG 0.4 SL x1,Plavix 75mg po prior to arrival ,pt is awake,alert,cool,diaphonretic.
--- NOTE | 2017-01-26 09:09 | NUR ---
Placed in room 7 . Placed on radiation monitor, blood pressure machine and pulse oximeter. To gown for exam. Side rails up.
[2017-01-26] MEDS ORDERED: ASPIRIN 325 MG TABLET PO ONE (09:15)
[2017-01-26] MEDS ORDERED: ONDANSETRON HCL 4 MG/2 ML VIAL IVP ONE (09:15)
[2017-01-26] MEDS ORDERED: MORPHINE 4 MG/ML INJ. SYRINGE IVP ONE ×2 (09:15→09:45)
--- NOTE | 2017-01-26 09:28 | NUR ---
# 20 gauge angiocath placed to left hand. Use of asceptic technique. Opsite placed over site. Blood return noted. Blood for lab drawn from site. Flushed with 10 cc of normal saline. No evidence of infiltration noted. Patient tolerated well.
--- NOTE | 2017-01-26 09:28 | NUR ---
# 20 gauge angiocath placed to RAC. Use of asceptic technique. Opsite placed over site. Blood return noted. Blood for lab drawn from site. Flushed with 10 cc of normal saline. No evidence of infiltration noted. Patient tolerated well.
[2017-01-26 09:39] LABS: POTASSIUM 4.7 mmol/L (3.5-5.1)
[2017-01-26 09:40] LABS: BASOPHILS % (AUTO) 0.3 % (0.0-2.0); EOSINOPHILS # (AUTO) 0.3 K/uL (0.0-0.4); EOSINOPHILS % (AUTO) 2.7 % (0.0-4.0); HEMATOCRIT 35.7 % (36-54); HEMOGLOBIN 11.9 g/dL (14.0-18.0); LYMPHOCYTES # (AUTO) 2.1 K/uL (1.0-5.5); LYMPHOCYTES % (AUTO) 16.1 % (20.5-51.5); MEAN CORPUSCULAR HEMOGLOBIN 29 pg (27-31); MEAN CORPUSCULAR HGB CONC 34 % (32-36); MEAN CORPUSCULAR VOLUME 87 fL (79.0-98.0); MONOCYTES # (AUTO) 1.1 K/uL (0.0-1.0); MONOCYTES % (AUTO) 8.4 % (1.7-9.3); NEUTROPHILS # (AUTO) 9.3 K/uL (1.8-7.7); NEUTROPHILS % (AUTO) 72.5 % (40.0-70.0); PLATELET COUNT (AUTO) 319 K/uL (130-430); RED BLOOD CELL COUNT(AUTO) 4.12 MIL/uL (4.2-6.2); RED CELL DISTRIBUTION WIDTH 14.1 % (9.0-15.0); WHITE BLOOD COUNT (AUTO) 12.8 K/uL (4.8-10.8)
[2017-01-26] MEDS ORDERED: MORPHINE 4 MG/ML INJ. SYRINGE ONE (09:42)
[2017-01-26 09:46] LABS: INR 1.4 (0.80-1.20); PROTHROMBIN TIME 15.6 SECS (9.5-12.5)
[2017-01-26 09:47] LABS: CALCIUM 8.4 mg/dL (8.4-11.0); CREATININE 1.84 mg/dL (0.55-1.30)
[2017-01-26 09:59] LABS: ALBUMIN 3.2 g/dL (3.4-4.8); TOTAL BILIRUBIN 0.5 mg/dL (0.0-1.0); TOTAL PROTEIN, SERUM 7.6 g/dL (6.4-8.3)
[2017-01-26 10:12] VITALS: BP 136/95; PULSE 61; RESP 18; TEMP 98.1; O2SAT 100
--- NOTE | 2017-01-26 10:22 | NUR ---
Patient to be transferred to [facility] by 911 ambulance. Is being transferred due to higher level of care. Receiving facility has accepting physician and available space. ER physician has signed transfer form. Patient or responsible green party has agreed to transfer and signed form. Patient belongings inventoried and will be sent with patient. Copy of nursing notes, lab reports, EKG, Physicians Orders and X-rays to be sent with patient. Report called to at receiving facility. Receiving physician is . ambulance service has been called for transfer.
== END 2017-01-26 09:40 | disposition short-term general hospital (02) ==
LOC: SED 09:09
DX: I21.3 ST elevation (STEMI) myocardial infarction of unspecified site (principal); E11.9 Type 2 diabetes mellitus without complications; I10 Essential (primary) hypertension; Z88.0 Allergy status to penicillin; Z79.82 Long term (current) use of aspirin; Z95.0 Presence of cardiac pacemaker; Z95.5 Presence of coronary angioplasty implant and graft
CPT/HCPCS: 36415; 71010; 80053; 82550; 83735; 84484; 85025; 85610; 85730; 93005; 96374; 96375; 99291; J2270; J2405

== ENCOUNTER 2017-01-29 15:42 | Outpatient (CLI) | payer OTHER ==
[~2017-01-29 15:42] MED LIST changes: -ASPI81TA2 PO; -CLOP75TA2 PO; -METF1000 PO; -WARF2TAB2 PO; -WARF5TAB2 PO
[2017-01-29 16:15] LABS: BASOPHILS # (AUTO) 0.1 K/uL (0.0-0.2); BASOPHILS % (AUTO) 0.5 % (0.0-2.0); EOSINOPHILS # (AUTO) 0.2 K/uL (0.0-0.4); EOSINOPHILS % (AUTO) 1.8 % (0.0-4.0); HEMATOCRIT 35.4 % (36-54); HEMOGLOBIN 11.8 g/dL (14.0-18.0); LYMPHOCYTES # (AUTO) 2.1 K/uL (1.0-5.5); LYMPHOCYTES % (AUTO) 18.9 % (20.5-51.5); MEAN CORPUSCULAR HEMOGLOBIN 28 pg (27-31); MEAN CORPUSCULAR HGB CONC 33 % (32-36); MEAN CORPUSCULAR VOLUME 85 fL (79.0-98.0); MONOCYTES # (AUTO) 1.4 K/uL (0.0-1.0); MONOCYTES % (AUTO) 12.5 % (1.7-9.3); NEUTROPHILS # (AUTO) 7.3 K/uL (1.8-7.7); NEUTROPHILS % (AUTO) 66.3 % (40.0-70.0); PLATELET COUNT (AUTO) 370 K/uL (130-430); RED BLOOD CELL COUNT(AUTO) 4.19 MIL/uL (4.2-6.2); RED CELL DISTRIBUTION WIDTH 14.2 % (9.0-15.0); WHITE BLOOD COUNT (AUTO) 11.1 K/uL (4.8-10.8)
[2017-01-29 16:40] LABS: ALBUMIN 3.3 g/dL (3.4-4.8); CALCIUM 8.6 mg/dL (8.4-11.0); CREATININE 1.78 mg/dL (0.55-1.30); POTASSIUM 4.2 mmol/L (3.5-5.1); TOTAL BILIRUBIN 0.5 mg/dL (0.0-1.0); TOTAL PROTEIN, SERUM 8.1 g/dL (6.4-8.3)
== END 2017-01-29 19:05 | disposition home or self-care (01) ==
LOC: SLB 15:42
PROVIDERS: ATTEND Internal Medicine
DX: E11.9 Type 2 diabetes mellitus without complications (principal); I10 Essential (primary) hypertension
CPT/HCPCS: 36415; 80053; 85025

== ENCOUNTER 2017-02-06 08:59 | Outpatient (CLI) | payer OTHER ==
[2017-02-06 09:35] LABS: BASOPHILS # (AUTO) 0.3 K/uL (0.0-0.2); BASOPHILS % (AUTO) 2.3 % (0.0-2.0); EOSINOPHILS # (AUTO) 0.5 K/uL (0.0-0.4); EOSINOPHILS % (AUTO) 3.7 % (0.0-4.0); HEMATOCRIT 35.9 % (36-54); HEMOGLOBIN 11.8 g/dL (14.0-18.0); LYMPHOCYTES # (AUTO) 1.9 K/uL (1.0-5.5); LYMPHOCYTES % (AUTO) 14.4 % (20.5-51.5); MEAN CORPUSCULAR HEMOGLOBIN 28 pg (27-31); MEAN CORPUSCULAR HGB CONC 33 % (32-36); MEAN CORPUSCULAR VOLUME 86 fL (79.0-98.0); MONOCYTES # (AUTO) 1.4 K/uL (0.0-1.0); MONOCYTES % (AUTO) 10.4 % (1.7-9.3); NEUTROPHILS # (AUTO) 9.2 K/uL (1.8-7.7); NEUTROPHILS % (AUTO) 69.2 % (40.0-70.0); PLATELET COUNT (AUTO) 377 K/uL (130-430); RED BLOOD CELL COUNT(AUTO) 4.19 MIL/uL (4.2-6.2); RED CELL DISTRIBUTION WIDTH 14.3 % (9.0-15.0); WHITE BLOOD COUNT (AUTO) 13.3 K/uL (4.8-10.8)
[2017-02-06 09:47] LABS: INR 2.3 (0.80-1.20); PROTHROMBIN TIME 25.8 SECS (9.5-12.5)
[2017-02-06 10:00] LABS: ALBUMIN 3.2 g/dL (3.4-4.8); CALCIUM 8.5 mg/dL (8.4-11.0); CREATININE 1.77 mg/dL (0.55-1.30); THYROID STIMULATING HORMONE 9.1 uIu/mL (0.34-4.82); TOTAL BILIRUBIN 0.4 mg/dL (0.0-1.0); TOTAL PROTEIN, SERUM 7.6 g/dL (6.4-8.3)
[2017-02-06 10:06] LABS: POTASSIUM 4.8 mmol/L (3.5-5.1)
== END 2017-02-06 19:59 | disposition home or self-care (01) ==
LOC: SLB 08:59
PROVIDERS: ATTEND Internal Medicine
DX: D68.62 Lupus anticoagulant syndrome (principal); E11.65 Type 2 diabetes mellitus with hyperglycemia; I25.10 Atherosclerotic heart disease of native coronary artery without angina pectoris; E03.9 Hypothyroidism, unspecified; I10 Essential (primary) hypertension
CPT/HCPCS: 36415; 80053; 84443-TC; 85025; 85610-TC

== ENCOUNTER 2017-02-15 17:49 | Outpatient (CLI) | payer OTHER ==
[2017-02-15 18:31] LABS: INR 6.9 (0.80-1.20); PROTHROMBIN TIME 79.5 SECS (9.5-12.5)
== END 2017-02-15 19:33 | disposition home or self-care (01) ==
LOC: SLB 17:49
PROVIDERS: ATTEND Internal Medicine
DX: D68.62 Lupus anticoagulant syndrome (principal)
CPT/HCPCS: 36415; 85610-TC

== ENCOUNTER 2017-02-15 21:27 | Emergency (ER) | payer OTHER ==
[~2017-02-15] VITALS: Ht 172.7 cm; Wt 71.7 kg
[2017-02-15 21:30] VITALS: BP_SYST 137
--- NOTE | 2017-02-15 21:30 | NUR ---
Patient to ER ch to gown for evaluation. Side rails up. Report given to MARELY Borjas.
--- NOTE | 2017-02-15 21:35 | NUR ---
Pt brought in in stable condition. Pt stated his labs were drawn at 1800 this evening and INR came back as 6.9. Pt denies any pain, SOB, chest pain at this time. No acute distress noted at this time, will continue to monitor
[2017-02-15] MEDS ORDERED: PHYTONADIONE 10 MG/ML AMP IM ONE (21:45)
--- NOTE | 2017-02-15 21:45 | NUR ---
ER at bedside examining patient.
[2017-02-16 00:28] VITALS: BP_SYST 137
--- NOTE | 2017-02-16 00:28 | NUR ---
Patient given written and verbal discharge instructions and verbalizes understanding. ER MD Ibanez discussed with patient the results and treatment provided. Patient in stable condition. ID arm band Patient educated on pain management and to follow up with PMD. Pain Scale 0/10. Opportunity for questions provided and answered.
== END 2017-02-16 00:28 | disposition home or self-care (01) ==
LOC: SED 21:27
DX: R79.1 Abnormal coagulation profile (principal); I10 Essential (primary) hypertension; E11.9 Type 2 diabetes mellitus without complications; Z88.0 Allergy status to penicillin; Z79.82 Long term (current) use of aspirin; Z86.718 Personal history of other venous thrombosis and embolism
CPT/HCPCS: 96372; 99283; J3430

== ENCOUNTER 2017-02-16 15:30 | Outpatient (CLI) | payer OTHER ==
[2017-02-16 16:32] LABS: PROTHROMBIN TIME 41.1 SECS (9.5-12.5)
[2017-02-16 16:33] LABS: INR 3.6 (0.80-1.20)
== END 2017-02-16 19:01 | disposition home or self-care (01) ==
LOC: SLB 15:30
PROVIDERS: ATTEND Internal Medicine
DX: D68.62 Lupus anticoagulant syndrome (principal)
CPT/HCPCS: 36415; 85610-TC

== ENCOUNTER 2017-02-17 16:37 | Outpatient (CLI) | payer OTHER ==
[2017-02-17 17:36] LABS: INR 1.7 (0.80-1.20); PROTHROMBIN TIME 18.3 SECS (9.5-12.5)
== END 2017-02-17 19:40 | disposition home or self-care (01) ==
LOC: SLB 16:37
PROVIDERS: ATTEND Internal Medicine
DX: D68.62 Lupus anticoagulant syndrome (principal)
CPT/HCPCS: 36415; 85610-TC

== ENCOUNTER 2017-02-21 13:09 | Outpatient (RCR) | payer OTHER ==
[2017-02-13 14:31] LABS: PROTHROMBIN TIME 77.4 SECS (9.5-12.5)
[2017-02-13 14:32] LABS: INR 6.7 (0.80-1.20)
[2017-02-19 15:27] LABS: INR 1.5 (0.80-1.20)
[~2017-02-21 13:09] MED LIST changes: +ASPI81TA2 PO; +CLOP75TA2 PO; +METF1000 PO; +WARF2TAB2 PO; +WARF5TAB2 PO
[2017-02-21 14:08] LABS: INR 2.1 (0.80-1.20); PROTHROMBIN TIME 23.3 SECS (9.5-12.5)
== END 2017-02-23 | disposition still patient (30) ==
LOC: SLB 13:09
PROVIDERS: ATTEND Internal Medicine
DX: D62 Acute posthemorrhagic anemia (principal)
CPT/HCPCS: 36415; 85610-TC

== ENCOUNTER 2017-02-25 09:16 | Outpatient (CLI) | payer OTHER ==
[2017-02-25 09:45] LABS: BASOPHILS # (AUTO) 0.1 K/uL (0.0-0.2); BASOPHILS % (AUTO) 1.1 % (0.0-2.0); EOSINOPHILS # (AUTO) 0.3 K/uL (0.0-0.4); EOSINOPHILS % (AUTO) 2.6 % (0.0-4.0); HEMATOCRIT 41.2 % (36-54); HEMOGLOBIN 13.4 g/dL (14.0-18.0); LYMPHOCYTES % (AUTO) 15.2 % (20.5-51.5); MEAN CORPUSCULAR HEMOGLOBIN 28 pg (27-31); MEAN CORPUSCULAR HGB CONC 33 % (32-36); MEAN CORPUSCULAR VOLUME 87 fL (79.0-98.0); MONOCYTES # (AUTO) 1.1 K/uL (0.0-1.0); MONOCYTES % (AUTO) 8.1 % (1.7-9.3); NEUTROPHILS # (AUTO) 9.7 K/uL (1.8-7.7); PLATELET COUNT (AUTO) 478 K/uL (130-430); RED BLOOD CELL COUNT(AUTO) 4.77 MIL/uL (4.2-6.2); RED CELL DISTRIBUTION WIDTH 15.1 % (9.0-15.0); WHITE BLOOD COUNT (AUTO) 13.2 K/uL (4.8-10.8)
[2017-02-25 09:56] LABS: CALCIUM 8.8 mg/dL (8.4-11.0); CREATININE 1.48 mg/dL (0.55-1.30); POTASSIUM 4.5 mmol/L (3.5-5.1)
== END 2017-02-25 20:56 | disposition home or self-care (01) ==
LOC: SLB 09:16
PROVIDERS: ATTEND Internal Medicine
DX: I25.10 Atherosclerotic heart disease of native coronary artery without angina pectoris (principal); E11.9 Type 2 diabetes mellitus without complications; Z95.5 Presence of coronary angioplasty implant and graft
CPT/HCPCS: 36415; 80048; 83880; 85025

== ENCOUNTER 2017-02-26 14:58 | Outpatient (CLI) | payer OTHER ==
[~2017-02-26 14:58] MED LIST changes: -ASPI81TA2 PO; -CLOP75TA2 PO; -METF1000 PO; -WARF2TAB2 PO; -WARF5TAB2 PO
== END 2017-02-26 18:22 | disposition home or self-care (01) ==
LOC: SRD 14:58
PROVIDERS: ATTEND Internal Medicine
DX: R06.02 Shortness of breath (principal)
CPT/HCPCS: 71020-TC

== ENCOUNTER 2017-03-12 08:14 | Outpatient (CLI) | payer OTHER | END 2017-03-12 14:00 | disposition home or self-care (01) | LOC: SCA 08:14 | PROVIDERS: ATTEND Internal Medicine | DX: I50.9 Heart failure, unspecified (principal); I27.2 Other secondary pulmonary hypertension; I82.90 Acute embolism and thrombosis of unspecified vein; I08.3 Combined rheumatic disorders of mitral, aortic and tricuspid valves | CPT/HCPCS: 93306 ==

== ENCOUNTER 2017-03-17 11:43 | Outpatient (RCR) | payer OTHER ==
[2017-02-24 14:03] LABS: PROTHROMBIN TIME 34.2 SECS (9.5-12.5)
[2017-03-03 13:17] LABS: PROTHROMBIN TIME 63.8 SECS (9.5-12.5)
[2017-03-03 13:18] LABS: INR 5.6 (0.80-1.20)
[2017-03-07 13:53] LABS: INR 2.4 (0.80-1.20); PROTHROMBIN TIME 27.1 SECS (9.5-12.5)
[2017-03-11 17:42] LABS: INR 3.7 (0.80-1.20)
[2017-03-11 17:43] LABS: PROTHROMBIN TIME 42.2 SECS (9.5-12.5)
[~2017-03-17 11:43] MED LIST changes: +ASPI81TA2 PO; +CLOP75TA2 PO; +METF1000 PO; +WARF2TAB2 PO; +WARF5TAB2 PO
[2017-03-17 12:07] LABS: INR 1.4 (0.80-1.20); PROTHROMBIN TIME 15.6 SECS (9.5-12.5)
== END 2017-03-26 | disposition home or self-care (01) ==
LOC: SLB 11:43
PROVIDERS: ATTEND Internal Medicine
DX: D68.62 Lupus anticoagulant syndrome (principal); Z79.01 Long term (current) use of anticoagulants
CPT/HCPCS: 36415; 85610-TC

== ENCOUNTER 2017-03-17 14:37 | Outpatient (CLI) | payer OTHER ==
[~2017-03-17 14:37] MED LIST changes: -ASPI81TA2 PO; -CLOP75TA2 PO; -METF1000 PO; -WARF2TAB2 PO; -WARF5TAB2 PO
== END 2017-03-17 20:28 | disposition home or self-care (01) ==
LOC: SRD 14:37
PROVIDERS: ATTEND Internal Medicine
DX: R05 Cough (principal)
CPT/HCPCS: 71020-TC

== ENCOUNTER 2017-03-17 15:07 | Emergency (ER) | payer OTHER ==
[~2017-03-17] VITALS: Ht 167.6 cm; Wt 86.2 kg
[~2017-03-17 15:07] MED LIST changes: +ASPI81TA2 PO; +CLOP75TA2 PO; +METF1000 PO; +WARF2TAB2 PO; +WARF5TAB2 PO
--- NOTE | 2017-03-17 15:07 | NUR ---
Patient to [facility] for evaluation. Side rails up. Report given to MARELY ULRICH.
--- NOTE | 2017-03-17 15:10 | NUR ---
Patient ambulated to hallway chair with a steady gait. Pt c/o left toe pain s/p getting ran over by portable xray machine. Pt stated that he was here to do chest xray for PMD and was in radiology hallway when portable xray machine came around the corner and ran over pt's left toes. -sob -chest pain. No acute distress noted at this time, will continue to monitor
[2017-03-17 15:12] VITALS: BP 153/90; PULSE 90; RESP 14; TEMP 102.7; O2SAT 95
[2017-03-17] MEDS ORDERED: ACETAMINOPHEN 500 MG TABLET ONE (15:28)
--- NOTE | 2017-03-17 15:30 | NUR ---
pt back from x-ray via wheelchair
--- NOTE | 2017-03-17 15:35 | NUR ---
ER at bedside examining patient.
[2017-03-17 15:57] VITALS: BP 153/90; PULSE 90; RESP 14; TEMP 101; O2SAT 95
--- NOTE | 2017-03-17 15:57 | NUR ---
Patient given written and verbal discharge instructions and verbalizes understanding. ER MD Mai discussed with patient the results and treatment provided. Patient in stable condition. ID arm band removed. Rx of Cipro given. Patient educated on pain management and to follow up with PMD. Pain Scale 0/10. Opportunity for questions provided and answered.
[2017-03-17] MEDS ORDERED: BACITRACIN 1 GM OINT TP ONE (16:00)
== END 2017-03-17 15:57 | disposition home or self-care (01) ==
LOC: SED 15:07
DX: S90.112A Contusion of left great toe without damage to nail, initial encounter (principal); K21.9 Gastro-esophageal reflux disease without esophagitis; E11.9 Type 2 diabetes mellitus without complications; I10 Essential (primary) hypertension; E83.39 Other disorders of phosphorus metabolism; Z88.0 Allergy status to penicillin; Z79.82 Long term (current) use of aspirin; W22.8XXA Striking against or struck by other objects, initial encounter; Y93.89 Activity, other specified; Y92.89 Other specified places as the place of occurrence of the external cause; Y99.8 Other external cause status
CPT/HCPCS: 99284

== ENCOUNTER 2017-04-08 07:45 | Outpatient (CLI) | payer OTHER ==
[~2017-04-08 07:45] MED LIST changes: -ASPI81TA2 PO; -CLOP75TA2 PO; -METF1000 PO; -WARF2TAB2 PO; -WARF5TAB2 PO
== END 2017-04-08 18:23 | disposition home or self-care (01) ==
LOC: SRD 07:45
PROVIDERS: ATTEND Specialist
DX: R91.8 Other nonspecific abnormal finding of lung field (principal); M47.894 Other spondylosis, thoracic region
CPT/HCPCS: 71020-TC

== ENCOUNTER 2018-05-01 09:50 | Outpatient (CLI) | payer OTHER ==
[2018-05-01 11:21] LABS: BILIRUBIN,URINE NEGATIVE (NEGATIVE); CLARITY/URINE CLEAR (CLEAR); COLOR,URINE YELLOW (YELLOW); GLUCOSE,URINE 3+ (NEGATIVE); KETONES,URINE NEGATIVE (NEGATIVE); LEUKOCYTE ESTERASE ,URINE NEGATIVE (NEGATIVE); NITRITE, URINE NEGATIVE (NEGATIVE); PROTEIN URINE 2+ (NEGATIVE); UROBILINOGEN,URINE 0.2 (0.2-1.0)
[2018-05-01 11:22] LABS: BASOPHILS # (AUTO) 0.1 K/uL (0.0-0.2); BASOPHILS % (AUTO) 0.5 % (0.0-2.0); EOSINOPHILS # (AUTO) 0.1 K/uL (0.0-0.4); EOSINOPHILS % (AUTO) 0.9 % (0.0-4.0); HEMATOCRIT 48.5 % (36-54); LYMPHOCYTES # (AUTO) 1.8 K/uL (1.0-5.5); LYMPHOCYTES % (AUTO) 13.9 % (20.5-51.5); MEAN CORPUSCULAR HEMOGLOBIN 29 pg (27-31); MEAN CORPUSCULAR HGB CONC 33 % (32-36); MEAN CORPUSCULAR VOLUME 87 fL (79.0-98.0); MONOCYTES # (AUTO) 1.3 K/uL (0.0-1.0); NEUTROPHILS # (AUTO) 9.3 K/uL (1.8-7.7); NEUTROPHILS % (AUTO) 74.7 % (40.0-70.0); PLATELET COUNT (AUTO) 156 K/uL (130-430); RED BLOOD CELL COUNT(AUTO) 5.55 MIL/uL (4.2-6.2); RED CELL DISTRIBUTION WIDTH 14.5 % (9.0-15.0); WHITE BLOOD COUNT (AUTO) 12.6 K/uL (4.8-10.8)
[2018-05-01 11:49] LABS: INR 1.3 (0.80-1.20); PROTHROMBIN TIME 12.9 SECS (9.5-12.5)
[2018-05-01 11:52] LABS: BLOOD, URINE TRACE (NEGATIVE)
[2018-05-01 11:54] LABS: BACTERIA,URINE RARE /HPF (None Seen); MUCUS,URINE None Seen /LPF (None Seen); RBC,URINE 0-3 /HPF (0-3); WBC,URINE 0-3 /HPF (0-3); YEAST,URINE None Seen /HPF (None Seen)
[2018-05-01 12:06] LABS: ALBUMIN 3.6 g/dL (3.4-4.8); CALCIUM 9.4 mg/dL (8.4-11.0); CREATININE 1.96 mg/dL (0.55-1.30); THYROID STIMULATING HORMONE 4.58 uIu/mL (0.34-4.82); TOTAL BILIRUBIN 0.9 mg/dL (0.0-1.0); URIC ACID 4.9 mg/dL (2.4-7.0)
[2018-05-02 13:09] LABS: PROSTATE SPECIFIC AG 2.5 ng/mL (0.0-4.0)
[2018-05-03 09:16] LABS: HEMOGLOBIN A1C 11.1 % (4.8-5.6)
== END 2018-05-01 19:30 | disposition home or self-care (01) ==
LOC: SLB 09:50
PROVIDERS: ATTEND Internal Medicine
DX: J44.9 Chronic obstructive pulmonary disease, unspecified (principal); I25.10 Atherosclerotic heart disease of native coronary artery without angina pectoris; E11.9 Type 2 diabetes mellitus without complications; E03.9 Hypothyroidism, unspecified; E78.5 Hyperlipidemia, unspecified; I10 Essential (primary) hypertension; K21.9 Gastro-esophageal reflux disease without esophagitis; Z87.891 Personal history of nicotine dependence; Z79.899 Other long term (current) drug therapy
CPT/HCPCS: 36415; 80053; 80061; 81000-TC; 82043; 82306; 82570; 82607; 83036; 84153; 84443-TC; 84550-TC; 85025; 85610-TC

== ENCOUNTER 2018-05-05 09:29 | Outpatient (CLI) | payer OTHER | END 2018-05-05 20:47 | disposition home or self-care (01) | LOC: SRD 09:29 | PROVIDERS: ATTEND Internal Medicine | DX: M19.011 Primary osteoarthritis, right shoulder (principal); M19.012 Primary osteoarthritis, left shoulder; M47.892 Other spondylosis, cervical region | CPT/HCPCS: 72050-TC; 73030 ==

== ENCOUNTER 2018-05-12 10:19 | Outpatient (CLI) | payer OTHER ==
[2018-05-12 10:54] LABS: BASOPHILS % (AUTO) 0.2 % (0.0-2.0); EOSINOPHILS # (AUTO) 0.2 K/uL (0.0-0.4); EOSINOPHILS % (AUTO) 1.5 % (0.0-4.0); HEMATOCRIT 40.3 % (36-54); HEMOGLOBIN 13.4 g/dL (14.0-18.0); LYMPHOCYTES # (AUTO) 2.3 K/uL (1.0-5.5); LYMPHOCYTES % (AUTO) 19.8 % (20.5-51.5); MEAN CORPUSCULAR HEMOGLOBIN 29 pg (27-31); MEAN CORPUSCULAR HGB CONC 33 % (32-36); MEAN CORPUSCULAR VOLUME 87 fL (79.0-98.0); MONOCYTES # (AUTO) 1.3 K/uL (0.0-1.0); MONOCYTES % (AUTO) 10.9 % (1.7-9.3); NEUTROPHILS # (AUTO) 7.7 K/uL (1.8-7.7); NEUTROPHILS % (AUTO) 67.6 % (40.0-70.0); PLATELET COUNT (AUTO) 267 K/uL (130-430); RED BLOOD CELL COUNT(AUTO) 4.62 MIL/uL (4.2-6.2); RED CELL DISTRIBUTION WIDTH 14.1 % (9.0-15.0); WHITE BLOOD COUNT (AUTO) 11.5 K/uL (4.8-10.8)
[2018-05-12 10:57] LABS: CALCIUM 8.8 mg/dL (8.4-11.0); CREATININE 1.69 mg/dL (0.55-1.30); POTASSIUM 4.8 mmol/L (3.5-5.1)
[2018-05-12 11:00] LABS: INR 2.2 (0.80-1.20); PROTHROMBIN TIME 22.3 SECS (9.5-12.5)
== END 2018-05-12 22:13 | disposition home or self-care (01) ==
LOC: SLB 10:19
PROVIDERS: ATTEND Internal Medicine
DX: E11.22 Type 2 diabetes mellitus with diabetic chronic kidney disease (principal); I12.9 Hypertensive chronic kidney disease with stage 1 through stage 4 chronic kidney disease, or unspecified chronic kidney disease; N18.9 Chronic kidney disease, unspecified; E03.9 Hypothyroidism, unspecified; K21.9 Gastro-esophageal reflux disease without esophagitis; J44.9 Chronic obstructive pulmonary disease, unspecified; Z87.891 Personal history of nicotine dependence; Z79.899 Other long term (current) drug therapy
CPT/HCPCS: 36415; 80048; 85025; 85610-TC

== ENCOUNTER 2018-06-24 11:54 | Outpatient (CLI) | payer OTHER ==
[~2018-06-24 11:54] MED LIST changes: -AMI200 PO; +AMIO200T3 PO; +ATOR-1 PO; -ATOR80TA63 PO
[2018-06-24 12:27] LABS: BASOPHILS % (AUTO) 0.3 % (0.0-2.0); EOSINOPHILS # (AUTO) 0.1 K/uL (0.0-0.4); EOSINOPHILS % (AUTO) 1.2 % (0.0-4.0); HEMATOCRIT 45.5 % (36-54); HEMOGLOBIN 15.1 g/dL (14.0-18.0); LYMPHOCYTES # (AUTO) 2.4 K/uL (1.0-5.5); LYMPHOCYTES % (AUTO) 19.3 % (20.5-51.5); MEAN CORPUSCULAR HEMOGLOBIN 29 pg (27-31); MEAN CORPUSCULAR HGB CONC 33 % (32-36); MEAN CORPUSCULAR VOLUME 87 fL (79.0-98.0); MONOCYTES # (AUTO) 0.9 K/uL (0.0-1.0); MONOCYTES % (AUTO) 7.3 % (1.7-9.3); NEUTROPHILS # (AUTO) 8.9 K/uL (1.8-7.7); NEUTROPHILS % (AUTO) 71.9 % (40.0-70.0); PLATELET COUNT (AUTO) 240 K/uL (130-430); RED BLOOD CELL COUNT(AUTO) 5.23 MIL/uL (4.2-6.2); RED CELL DISTRIBUTION WIDTH 14.6 % (9.0-15.0); WHITE BLOOD COUNT (AUTO) 12.3 K/uL (4.8-10.8)
[2018-06-24 12:33] LABS: INR 1.7 (0.80-1.20); PROTHROMBIN TIME 17.9 SECS (9.5-12.5)
[2018-06-24 12:45] LABS: ALBUMIN 3.4 g/dL (3.4-4.8); CALCIUM 9.2 mg/dL (8.4-11.0); CREATININE 1.47 mg/dL (0.55-1.30); POTASSIUM 4.4 mmol/L (3.5-5.1); THYROID STIMULATING HORMONE 2.33 uIu/mL (0.34-4.82); TOTAL BILIRUBIN 0.4 mg/dL (0.0-1.0)
== END 2018-06-24 19:59 | disposition home or self-care (01) ==
LOC: SLB 11:54
PROVIDERS: ATTEND Internal Medicine
DX: E11.22 Type 2 diabetes mellitus with diabetic chronic kidney disease (principal); I13.0 Hypertensive heart and chronic kidney disease with heart failure and stage 1 through stage 4 chronic kidney disease, or unspecified chronic kidney disease; N18.9 Chronic kidney disease, unspecified; I50.9 Heart failure, unspecified; E03.9 Hypothyroidism, unspecified; J44.9 Chronic obstructive pulmonary disease, unspecified; Z79.01 Long term (current) use of anticoagulants
CPT/HCPCS: 36415; 80053; 84443-TC; 85025; 85610-TC

== ENCOUNTER 2018-07-10 07:36 | Outpatient (CLI) | payer OTHER ==
[2018-07-10 08:22] LABS: INR 1.8 (0.80-1.20); PROTHROMBIN TIME 18.1 SECS (9.5-12.5)
[2018-07-10 08:25] LABS: ALBUMIN 3.2 g/dL (3.4-4.8); CREATININE 1.38 mg/dL (0.55-1.30); POTASSIUM 4.4 mmol/L (3.5-5.1); TOTAL BILIRUBIN 0.4 mg/dL (0.0-1.0)
[2018-07-10 10:06] LABS: WHITE BLOOD COUNT (AUTO) 12.6 K/uL (4.8-10.8)
[2018-07-10 10:07] LABS: BASOPHILS % (AUTO) 0.1 % (0.0-2.0); EOSINOPHILS # (AUTO) 0.2 K/uL (0.0-0.4); EOSINOPHILS % (AUTO) 1.4 % (0.0-4.0); HEMATOCRIT 45.8 % (36-54); HEMOGLOBIN 14.9 g/dL (14.0-18.0); LYMPHOCYTES # (AUTO) 2.5 K/uL (1.0-5.5); LYMPHOCYTES % (AUTO) 19.7 % (20.5-51.5); MEAN CORPUSCULAR HEMOGLOBIN 28 pg (27-31); MEAN CORPUSCULAR HGB CONC 33 % (32-36); MEAN CORPUSCULAR VOLUME 86 fL (79.0-98.0); MONOCYTES # (AUTO) 1.1 K/uL (0.0-1.0); NEUTROPHILS # (AUTO) 8.8 K/uL (1.8-7.7); NEUTROPHILS % (AUTO) 69.8 % (40.0-70.0); PLATELET COUNT (AUTO) 220 K/uL (130-430); RED CELL DISTRIBUTION WIDTH 14.6 % (9.0-15.0)
== END 2018-07-10 18:47 | disposition home or self-care (01) ==
LOC: SLB 07:36
PROVIDERS: ATTEND Internal Medicine
DX: D68.62 Lupus anticoagulant syndrome (principal); I25.10 Atherosclerotic heart disease of native coronary artery without angina pectoris; E11.65 Type 2 diabetes mellitus with hyperglycemia; I11.0 Hypertensive heart disease with heart failure; I50.9 Heart failure, unspecified; Z87.891 Personal history of nicotine dependence; Z95.0 Presence of cardiac pacemaker
CPT/HCPCS: 36415; 80053; 85025; 85610-TC